=== PATIENT | male | born 1955 | race Caucasian/White ===

== ENCOUNTER → 2017-08-17 | Outpatient (CLI) | payer BC ==
[2016-05-04 14:25] VITALS: BP 139/52
--- NOTE | 2017-08-17 10:28 | RAD ---
INDICATION: Thyroid nodule COMPARISON: CT from 12/19/2016 TECHNIQUE: Grayscale and color ultrasound images obtained of the thyroid. FINDINGS: Right Lobe: 5.6 x 2.9 x 2.8 cm. Left Lobe: 5.2 x 1.4 x 1.4 cm. 3.0 x 2.9 x 2.6 cm solid-appearing nodule right lobe of thyroid. IMPRESSION: 1. Solid-appearing right lobe of thyroid nodule is identified measuring up to 3 cm. Further workup options include obtaining a percutaneous biopsy. If the patient does not desire a biopsy at this time then a follow-up ultrasound will be needed in a few months to ensure no growth.
== END | disposition home or self-care (01) ==
LOC: US 09:25
PROVIDERS: ATTEND Physician Assistant
DX: E04.1 Nontoxic single thyroid nodule (principal)
CPT/HCPCS: 76536

== ENCOUNTER → 2019-08-08 | Outpatient (CLI) | payer MEDICARE ==
[2016-05-04 14:25] VITALS: BP 139/52
--- NOTE | 2019-08-08 11:53 | RAD ---
Examination: Ultrasound kidneys HISTORY: History of hematuria COMPARISON: None available FINDINGS: The right kidney measures 14.2 x 7.1 x 6.2 cm. The left kidney measures 14.7 x 1.2 x 1.4 cm. The urinary bladder is mildly distended. The prevoid urinary bladder volume is 56 cc. Postvoid urinary bladder volume is 0. IMPRESSION: Unremarkable visualized exam. If symptoms persist consider CT urogram for further evaluation. Electronically signed by: Jerardo Segura MD (08/08/2019 11:50 AM) [id number]
== END | disposition home or self-care (01) ==
LOC: US 11:05
PROVIDERS: ATTEND Physician Assistant Medical
DX: N32.89 Other specified disorders of bladder (principal)
CPT/HCPCS: 76770